=== PATIENT | female | born 1990 | race Caucasian/White ===

== ENCOUNTER 2016-09-10 10:24 | Emergency (ER) | payer OTHER ==
[~2016-09-10 10:24] MED LIST: ERYTHROMYCIN O3.5 GM OD; LORTAB 10-5001 EACH PO; MOTRIN600 M1 PO; NAPROSYN500 MG PO; NO MEDICATIONS; VOLTAREN75 MG PO; ZOFRAN PO
[2016-09-10 10:29] LABS: INFLUENZA A NEG (NEG); INFLUENZA B NEG (NEG)
== END 2016-09-10 11:24 | disposition home or self-care (01) ==
LOC: SED 10:24
PROVIDERS: Nurse Practitioner
DX: J02.0 Streptococcal pharyngitis (principal); F17.210 Nicotine dependence, cigarettes, uncomplicated
CPT/HCPCS: 87804; 87880; 96372; 99283; J0561

== ENCOUNTER 2016-10-15 10:32 | Emergency (ER) | payer OTHER ==
[2016-10-15 11:11] LABS: URINE SOURCE CLEAN CATCH
[2016-10-15 11:16] LABS: URINE APPEARANCE CLEAR; URINE BILIRUBIN NEG (NEG); URINE BLOOD NEG (NEG); URINE COLOR YELLOW; URINE GLUCOSE NEG (NORM); URINE KETONE NEG (NEG); URINE LEUKOCYTE ESTERASE NEG (NEG); URINE NITRATE NEG (NEG); URINE PROTEIN NEG (NEG)
[2016-10-15 11:19] LABS: MICRO INDICATED? NO
== END 2016-10-15 11:46 | disposition home or self-care (01) ==
LOC: SED 10:32
PROVIDERS: Nurse Practitioner
DX: Z32.01 Encounter for pregnancy test, result positive (principal); F32.9 Major depressive disorder, single episode, unspecified; F17.210 Nicotine dependence, cigarettes, uncomplicated
CPT/HCPCS: 81003; 84703; 99284